=== PATIENT | male | born 1945 | race Caucasian/White ===

== ENCOUNTER 2017-05-28 12:10 | Emergency (ER) | payer OTHER ==
[~2017-05-28] VITALS: Ht 170.2 cm; Wt 73.7 kg
[~2017-05-28 12:10] MED LIST: BACTDS PO; CEPH-443 PO
[2017-05-28 12:14] VITALS: Ht 170.2 cm; Wt 73.7 kg
[2017-05-28] MEDS ORDERED: IBUPROFEN 600 MG TAB PO ONE (14:00)
--- NOTE | 2017-05-28 14:21 | RADRPT ---
PROCEDURE: XR Chest. CLINICAL INDICATION: Cough. TECHNIQUE: Single frontal view of the chest was obtained. COMPARISON: None FINDINGS: The soft tissues are normal. There are degenerative osteophytes in the thoracic and upper lumbar sp ine. The heart is upper limits of normal for size. The cardiomediastinal silhouette and hilar struc tures are normal. The pulmonary vasculature is normal. There are vascular calcifications in the ect atic left-sided aorta. The lungs are clear. The costophrenic angles are normal. IMPRESSION: 1. 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 2. Borderline cardiomegaly with no evidence of active cardiopulmonary disease. 3. Spondylosis of the thoracic spine. RPTAT:AAJJ Physician Lisbeth Date Time Electronically viewed and signed by Physician Lisbeth on 05/28/2017 14:20 /
[2017-05-28] MEDS ORDERED: HYDR-905 PO (16:16)
[2017-05-28] MEDS ORDERED: NAPR-685 PO (16:16)
[2017-05-28] MEDS ORDERED: LEVO500T10 PO (16:16)
[2017-05-28] MEDS ORDERED: ONDA4TAB11 PO (16:16)
--- NOTE | 2017-05-28 16:53 | ERD ---
ER Documentation Chief Complaint Chief Complaint COUGH X 1 WEEK HPI This 71-year-old male presents for a dry cough times a week. Is also had mild joint pain. Denies chest pain. Denies shortness of breath. Says he is active and otherwise healthy. Has occasional nausea with no vomiting. ROS All systems reviewed and are negative except as per history of present illness. Medications Home Meds Active Scripts Hydrocodone/Acetaminophen ([place] 7.5-325 Tablet) 1 Each Tablet, 1 EACH PO Q6, # 10 TAB Prov:JESUS RUSH DO 05/28/17 Naproxen* (Naproxen*) 375 Mg Tablet, 375 MG PO BID Y for PAIN, #14 TAB Prov:JESUS RUSH DO 05/28/17 Levofloxacin* (Levofloxacin*) 500 Mg Tablet, 500 MG PO DAILY for 7 Days, TAB Prov:VICTOR MANUELJESUS DO 05/28/17 Ondansetron (Zofran Odt) 4 Mg Tab.rapdis, 4 MG PO Q6, #10 Prov:JESUS RUSH DO 05/28/17 Sulfamethoxazole-Trimethoprim* (Bactrim* DS) 800-160 Mg Tab, 1 TAB PO BID for 10 Days, TAB Prov:CHARLA HUTCHISON HARDNESS TESTER 10/04/15 Cephalexin* (Keflex*) 500 Mg Capsule, 500 MG PO QID for 10 Days, CAP Prov:CHARLA HUTCHISON HARDNESS TESTER 10/04/15 Allergies Allergies: Coded Allergies: No Known Allergy (Unverified , 10/04/15) PMhx/Soc History of Surgery: No Anesthesia Reaction: No Hx Neurological Disorder: No Hx Respiratory Disorders: No Hx Cardiac Disorders: Yes (HTN, HYPERLIPIDEMIA) Hx Psychiatric Problems: No Hx Miscellaneous Medical Probl: Yes (DM TYPE II) Hx Alcohol Use: No Hx Substance Use: No Hx Tobacco Use: No Physical Exam Vitals Vital Signs Date Time Temp Pulse Resp B/P Pulse Ox O2 Delivery O2 Flow Rate FiO2 05/28/17 12:14 98.0 118 18 157/85 97 Physical Exam Const: [] No acute distress Head: Atraumatic Eyes: Normal Conjunctiva ENT: Normal External Ears, Nose and Mouth. Neck: Full range of motion..~No JVD Resp: Clear to auscultation bilaterally Cardio: Regular tachycardia, no murmurs Abd: Soft, non tender, non distended. Normal bowel sounds Skin: No petechiae or rashes Ext: No cyanosis, or edema Neur: Awake and alert oriented 3, no focal deficits Psych: Normal Mood and Affect Results 24 hrs Current Medications Medications (Trade) Dose Ordered Sig/Jeffrey Route PRN Reason Start Time Stop Time Status Last Admin Dose Admin Ibuprofen (Motrin) 600 mg ONCE ONCE PO 05/28/17 14:00 05/28/17 14:01 DC 05/28/17 13:58 Procedures/MDM Well-appearing 71-year-old male with acute bronchitis. Patient did have tachycardia stated he did not feel that bad. EKG was done which was negative for ischemia. Chest x-ray was done which was negative for any acute process. He was given ibuprofen and said he felt better after that. Flu test is negative. I believe he likely has an upper respiratory infection and is at risk for bacterial infection. We will discharge him with Levaquin as well as Zofran, ibuprofen and a few [place]. I told him he should come back to the emergency room for a full workup if he has any other concerning symptoms or any fevers. Is aware that his heart rate is still fast and still feels comfortable leaving the ER. EKG interpretation: Sinus tachycardia of 113, normal axis, no ST or T-wave changes concerning for acute ischemia, normal intervals. Normal EKG except for tachycardia Chest x-ray interpretation: I see no acute process. I see no infiltrates, no hemorrhage, no palmar edema, pneumothorax, no fractures Departure Diagnosis: Primary Impression: Acute bronchitis Condition: Fair Patient Instructions: Bronchitis, Antiobiotic Treatment (Adult) Additional Instructions: Call your primary care doctor TOMORROW for an appointment during the next 1-2 days.See the doctor sooner or return here if your condition worsens before your appointment time. JESUS RUSH DO May 28, 2017 16:53
[2017-05-28 17:00] VITALS: BP 148/72; PULSE 76; RESP 18; TEMP 98.1
== END 2017-05-28 17:00 | disposition home or self-care (01) ==
LOC: FTE 12:10
DX: J20.9 Acute bronchitis, unspecified (principal); I10 Essential (primary) hypertension; E11.9 Type 2 diabetes mellitus without complications
CPT/HCPCS: 71010; 87400; 93005

== ENCOUNTER 2017-06-01 08:11 | Emergency (ER) | payer OTHER ==
[~2017-06-01] VITALS: Ht 172.7 cm; Wt 72.2 kg
[~2017-06-01 08:11] MED LIST changes: +HYDR-905 PO; +LEVO500T10 PO; +NAPR-685 PO; +ONDA4TAB11 PO
[2017-06-01 08:15] VITALS: Ht 172.7 cm; Wt 72.2 kg
[2017-06-01] MEDS ORDERED: SODIUM CHLORIDE 0.9% 1L BAG IV* STA (08:33)
[2017-06-01 09:18] LABS: BASOPHIL # 0.1 10^3/ul (0.0-0.1); BASOPHILS % 0.6 % (0.0-2.0); EOSINOPHILS # 0.1 10^3/ul (0.0-0.5); EOSINOPHILS % 1.7 % (0.0-7.0); HEMATOCRIT 44.7 % (42.0-52.0); HEMOGLOBIN 15.1 g/dl (14.0-18.0); LYMPHOCYTES # 2.1 10^3/ul (0.8-2.9); LYMPHOCYTES % 25.7 % (15.0-51.0); MEAN CORPUSCULAR HEMOGLOBIN 29.4 pg (29.0-33.0); MEAN CORPUSCULAR HGB CONC 33.8 g/dl (32.0-37.0); MEAN CORPUSCULAR VOLUME 87.1 fl (82.0-101.0); MEAN PLATELET VOLUME 9.4 fl (7.4-10.4); MONOCYTE # 0.7 10^3/ul (0.3-0.9); MONOCYTES % 8.2 % (0.0-11.0); NEUTROPHIL # 5.3 10^3/ul (1.6-7.5); NEUTROPHILS % 63.6 % (39.0-77.0); PLATELET COUNT 336 10^3/UL (140-415); RED BLOOD COUNT 5.13 10^6/ul (4.70-6.10); RED CELL DISTRIBUTION WIDTH 12.2 % (11.5-14.5); WHITE BLOOD COUNT 8.3 10^3/ul (4.8-10.8)
[2017-06-01 09:30] LABS: ADD UMIC NO; UR ASCORBIC ACID NEGATIVE (NEGATIVE); UR BILIRUBIN (Dip) NEGATIVE (NEGATIVE); UR BLOOD (Dip) NEGATIVE (NEGATIVE); UR CLARITY CLEAR (CLEAR); UR COLOR YELLOW (YELLOW); UR GLUCOSE (Dip) NEGATIVE (NEGATIVE); UR KETONES (Dip) TRACE mg/dL (NEGATIVE); UR LEUKOCYTE ESTERASE (Dip) NEGATIVE Leu/ul (NEGATIVE); UR NITRITE (Dip) NEGATIVE (NEGATIVE); UR SPECIFIC GRAVITY (Dip) 1.018 (1.003-1.030); UR TOTAL PROTEIN (Dip) NEGATIVE (NEGATIVE); UR UROBILINOGEN (Dip) NEGATIVE (NEGATIVE)
[2017-06-01 09:34] LABS: ALANINE AMINOTRANSFERASE 38 IU/L (13-69); ALBUMIN 4.8 g/dl (3.3-4.9); ALBUMIN/GLOBULIN RATIO 1.33; ALKALINE PHOSPHATASE 88 IU/L (42-121); ANION GAP 18 (8-16); ASPARTATE AMINO TRANSFERASE 28 IU/L (15-46); BILIRUBIN,INDIRECT 0.8 mg/dl (0-1.1); BILIRUBIN,TOTAL 0.8 mg/dl (0.2-1.3); BLOOD UREA NITROGEN 17 mg/dl (7-20); CALCIUM 9.7 mg/dl (8.4-10.2); CARBON DIOXIDE 28 mmol/L (21-31); CHLORIDE 96 mmol/L (97-110); CREATININE 1.07 mg/dl (0.61-1.24); GLUCOSE 145 mg/dl (70-220); SODIUM 138 mmol/L (135-144); TOTAL PROTEIN 8.4 g/dl (6.1-8.1)
[2017-06-01 09:40] LABS: INR 0.95; PROTIME 12.8 Sec (11.9-14.9)
[2017-06-01 09:41] LABS: PARTIAL THROMBOPLASTIN TIME 29.6 Sec (25.0-35.0)
[2017-06-01] MEDS ORDERED: ONDANSETRON 4 MG INJ IV STA (09:44)
[2017-06-01 09:47] LABS: TROPONIN-I < 0.012 ng/ml (0.00-0.12)
--- NOTE | 2017-06-01 09:55 | RADRPT ---
PROCEDURE: XR Chest. CLINICAL INDICATION: Vomiting, fever TECHNIQUE: Single frontal view of the chest was obtained. COMPARISON: CHEST 05/28/2017; KIMBER[facility] CHEST 10/02/2014 FINDINGS: The heart is within normal limits. The thoracic aorta is calcified. There is no focal infiltrate. There is a tiny calcified granuloma in the right lower lobe. There is no pleural effusion or pneumothorax. RPTAT: AA IMPRESSION: No acute disease. Calcified aorta consistent with atherosclerotic disease. .Mookie Ho MD, Date Time Electronically viewed and signed by .Mookie Ho MD, on 06/01/2017 09:54 .S/
[2017-06-01] MEDS ORDERED: FAMOTIDINE 20 MG INJ IV ONE (10:00)
[2017-06-01] MEDS ORDERED: SIMV40TA2 PO (10:16)
[2017-06-01] MEDS ORDERED: METF500T4 PO (10:16)
[2017-06-01] MEDS ORDERED: LEVO50TA74 PO (10:17)
[2017-06-01] MEDS ORDERED: CAPT25TA3 PO (10:17)
--- NOTE | 2017-06-01 10:43 | RADRPT ---
PROCEDURE: CT Abdomen and Pelvis without contrast. CLINICAL INDICATION: Abdominal pain TECHNIQUE: CT scan of the abdomen and pelvis was performed on a multidetector high-resolution CT s canner without intravenous contrast. Coronal and sagittal reformatted images were obtained from the axial source images. Images were reviewed on a high-resolution PACS workstation. The total exam CTD I equals 7mGy and the total exam DLP equals 466mGy-cm. One or more of the following dose reduction t echniques were used: Automated exposure control, Adjustment of the mA and/or kV according to patient size, and/or use of iterative reconstruction technique. DICOM images are available. COMPARISON: None. FINDINGS: Evaluation of the solid organs is limited given the lack of intravenous contrast administration. Coronary arterial and aortic atherosclerosis. The liver, pancreas, spleen, and adrenals are grossly unremarkable. No focal pericholecystic inflammatory changes. No hydronephrosis. No renal or ureteral stone. No bowel obstruction. Normal-caliber appendix. No significant retroperitoneal lymphadenopathy, ascites or evidence of pneumoperitoneum. Aortoiliac atherosclerosis. Fat containing right inguinal hernia. Prominent prostate gland. IMPRESSION: No renal or ureteral stone. No evidence of bowel obstruction or appendicitis. Fat containing right inguinal hernia. Coronary arterial and aortic atherosclerosis. RPTAT: AA .Allan Paulson MD, MD Date Time Electronically viewed and signed by .Allan Paulson MD, on 06/01/2017 10:43 .T/
--- NOTE | 2017-06-01 10:52 | ERD ---
ER Documentation Chief Complaint Chief Complaint FEVER & VOMITED 6-TIMES LAST NIGHT HPI This 71-year-old male presents to the emergency room for evaluation of the nausea, and vomiting. The patient states that he vomited 6 times. He states that his vomit has not had any blood in it. He has had 2 episodes of nonbloody diarrhea. States that he thinks he had a fever last night. The patient denies any chest pain, palpitations, shortness of breath, or diaphoresis. He denies any aggravating or relieving factors for his symptoms and came to the emergency room for further evaluation ROS All systems reviewed and are negative except as per history of present illness. Medications Home Meds Reported Medications Levothyroxine Sodium* (Levothyroxine Sodium*) 50 Mcg Tablet, 50 MCG PO BEFORE BREAKFAST, #30 TAB 06/01/17 Captopril* (Captopril*) 25 Mg Tablet, 25 MG PO BID, #60 TAB 06/01/17 Metformin* (Glucophage*) 500 Mg Tab, 500 MG PO BID WITH MEALS, #60 TAB 06/01/17 Simvastatin* (Zocor*) 40 Mg Tablet, 40 MG PO QHS, #30 TAB 06/01/17 Discontinued Scripts Hydrocodone/Acetaminophen ([place] 7.5-325 Tablet) 1 Each Tablet, 1 EACH PO Q6, # 10 TAB Prov:VICTOR MANUELJESUS DO 05/28/17 Naproxen* (Naproxen*) 375 Mg Tablet, 375 MG PO BID Y for PAIN, #14 TAB Prov:VICTOR MANUELJESUS DO 05/28/17 Levofloxacin* (Levofloxacin*) 500 Mg Tablet, 500 MG PO DAILY for 7 Days, TAB Prov:VICTOR MANUELJESUS DO 05/28/17 Ondansetron (Zofran Odt) 4 Mg Tab.rapdis, 4 MG PO Q6, #10 Prov:VICTOR MANUELJESUS DO 05/28/17 Sulfamethoxazole-Trimethoprim* (Bactrim* DS) 800-160 Mg Tab, 1 TAB PO BID for 10 Days, TAB Prov:CHARLA HUTCHISON NP 10/04/15 Cephalexin* (Keflex*) 500 Mg Capsule, 500 MG PO QID for 10 Days, CAP Prov:CHARLA HUTCHISON NP 10/04/15 Allergies Allergies: Coded Allergies: No Known Allergy (Unverified , 10/04/15) PMhx/Soc History of Surgery: No Anesthesia Reaction: No Hx Neurological Disorder: No Hx Respiratory Disorders: No Hx Cardiac Disorders: Yes (HTN, HYPERLIPIDEMIA) Hx Psychiatric Problems: No Hx Miscellaneous Medical Probl: Yes (DM TYPE II, thyroid) Hx Alcohol Use: No Hx Substance Use: No Hx Tobacco Use: No Smoking Status: Former smoker Physical Exam Vitals Vital Signs Date Time Temp Pulse Resp B/P Pulse Ox O2 Delivery O2 Flow Rate FiO2 06/01/17 08:15 96.5 124 16 160/49 100 Physical Exam INITIAL VITAL SIGNS: Reviewed by me GENERAL: The patient is well developed and appropriate for usual state of health in no apparent distress HEENT: Dry mucous membranes, pupils equal, round, and reactive to light. EOMI. There is no scleral icterus. NECK: C-spine is soft and supple, there is no meningismus. There is no cervical lymphadenopathy. LUNGS: Clear to auscultation bilaterally. There are no rales, wheezes or rhonchi. HEART: Tachycardic, no murmurs, clicks, rubs or gallops. ABDOMEN: Soft, non-tender, non-distended. There are bowel sounds in all four quadrants. No rebound or guarding. EXTREMITIES: There is no peripheral cyanosis or edema. No focal swelling or erythema. NEUROLOGICAL: The patient moves all four extremities with 5/5 strength. Cranial nerves II - XII are intact. Normal gait. Alert and oriented SKIN: There is no apparent rash or petechiae. HEME/LYMPHATIC: There is no evidence of excessive bruising or lymphedema. PSYCHIATRIC: The patient does not appear anxious or depressed. Result Diagram: 06/01/17 0847 06/01/17 0847 Results 24 hrs Laboratory Tests Test 06/01/17 08:43 06/01/17 08:47 06/01/17 09:03 06/01/17 09:06 Bedside Glucose 133mg/dL White Blood Count 8.310^3/ul Red Blood Count 5.1310^6/ul Hemoglobin 15.1g/dl Hematocrit 44.7% Mean Corpuscular Volume 87.1fl Mean Corpuscular Hemoglobin 29.4pg Mean Corpuscular Hemoglobin Concent 33.8g/dl Red Cell Distribution Width 12.2% Platelet Count 70694^3/UL Mean Platelet Volume 9.4fl Neutrophils % 63.6% Lymphocytes % 25.7% Monocytes % 8.2% Eosinophils % 1.7% Basophils % 0.6% Nucleated Red Blood Cells % 0.0/100WBC Neutrophils # 5.310^3/ul Lymphocytes # 2.110^3/ul Monocytes # 0.710^3/ul Eosinophils # 0.110^3/ul Basophils # 0.110^3/ul Nucleated Red Blood Cells # 0.010^3/ul Prothrombin Time 12.8Sec Prothrombin Time Ratio 1.0 INR International Normalized Ratio 0.95 Activated Partial Thromboplast Time 29.6Sec Sodium Level 138mmol/L Potassium Level 4.0mmol/L Chloride Level 96mmol/L Carbon Dioxide Level 28mmol/L Anion Gap 18 Blood Urea Nitrogen 17mg/dl Creatinine 1.07mg/dl Glucose Level 145mg/dl Calcium Level 9.7mg/dl Total Bilirubin 0.8mg/dl Direct Bilirubin 0.00mg/dl Indirect Bilirubin 0.8mg/dl Aspartate Amino Transf (AST/SGOT) 28IU/L Alanine Aminotransferase (ALT/SGPT) 38IU/L Alkaline Phosphatase 88IU/L Troponin I < 0.012ng/ml Total Protein 8.4g/dl Albumin 4.8g/dl Globulin 3.60g/dl Albumin/Globulin Ratio 1.33 Urine Color YELLOW Urine Clarity CLEAR Urine pH 5.0 Urine Specific [place] 1.018 Urine Ketones TRACEmg/dL Urine Nitrite NEGATIVEmg/dL Urine Bilirubin NEGATIVEmg/dL Urine Urobilinogen NEGATIVEmg/dL Urine Leukocyte Esterase NEGATIVELeu/ul Urine Hemoglobin NEGATIVEmg/dL Urine Glucose NEGATIVEmg/dL Urine Total Protein NEGATIVEmg/dl Lactic Acid Level 1.6mmol/L Current Medications Medications (Trade) Dose Ordered Sig/Jeffrey Route PRN Reason Start Time Stop Time Status Last Admin Dose Admin Sodium Chloride (NS) 2,240 ml BOLUS OVER 2 HOURS STAT IV* 06/01/17 08:33 06/01/17 08:34 DC 06/01/17 09:13 Ondansetron HCl (Zofran Inj) 4 mg ONCE STAT IV 06/01/17 09:44 06/01/17 09:45 DC 06/01/17 10:29 Famotidine (Pepcid Iv) 20 mg ONCE ONCE IV 06/01/17 10:00 06/01/17 10:01 DC 06/01/17 10:29 Procedures/MDM EKG: Rate/Rhythm: Sinus tachycardia QRS, ST, T-waves: [No changes consistent w/ acute ischemia] Impression: [No evidence of ischemia or arrhythmia] Chest X-ray 1V Interpreted by me: Soft Tissue: No acute abnormalities Bones: No acute abnormalities Mediastinum/Cardiac Silhouette/Lungs: [No acute abnormalities] CT abd/pelvis: No renal or ureteral stone. No evidence of bowel obstruction or appendicitis. Fat containing right inguinal hernia. Coronary arterial and aortic atherosclerosis. This 71-year-old male presents to the emergency room for evaluation of nausea and vomiting. When I evaluated this patient he was tachycardic and did have dry mucous membranes. A septic workup was started on this patient and lab work is within normal limits at this time. This patient had a chest x-ray which was clear, EKG was nonischemic and CT of the abdomen and pelvis was obtained which does not show any acute pathology. He does not have a leukocytosis, lactic acid is normal. He was given greater than 30 cc/kg of IV normal saline and was also given Zofran and Pepcid. After being in the emergency room for approximately 2 hours I reevaluated this patient. The patient is sleeping comfortably and he is in no acute distress. His heart rate is now 99 bpm, and his oxygen saturations 100% on room air. This patient is likely dehydrated from vomiting. At this time I do not see a reason for admission as this patient has improved clinically and is no signs of sepsis. The patient's troponin is negative as well and he will be discharged at this time with a prescription for Zofran Pepcid with instructions to return to the ER as if his symptoms worsen. But the patient and the patient's are okay with the plan of care Departure Diagnosis: Primary Impression: Acute vomiting Additional Impressions: Mild dehydration Ketonuria Condition: Stable NANETTE DUNCAN DO Jun 01, 2017 10:52
[2017-06-01] MEDS ORDERED: ONDA4TAB8 PO (10:53)
[2017-06-01 11:15] VITALS: BP 130/81; PULSE 105; RESP 17
== END 2017-06-01 11:16 | disposition home or self-care (01) ==
LOC: E/R 08:11
DX: E86.0 Dehydration (principal); R11.10 Vomiting, unspecified; R82.4 Acetonuria; I10 Essential (primary) hypertension; E11.9 Type 2 diabetes mellitus without complications; R10.9 Unspecified abdominal pain; Z79.84 Long term (current) use of oral hypoglycemic drugs; Z87.891 Personal history of nicotine dependence
CPT/HCPCS: 36415; 71010; 74176; 80053; 81003; 82962; 83605; 84484; 85025; 85610; 85730; 87040; 87086; 93005; 96374; 96375; 99285; J2405; J7030

== ENCOUNTER 2018-03-22 07:44 | Emergency (ER) | END 2018-03-22 11:26 | disposition home or self-care (01) ==

== ENCOUNTER 2018-09-26 06:39 | Emergency (ER) | payer OTHER, MEDICAID ==
[~2018-09-26] VITALS: Wt 79.2 kg
[~2018-09-26 06:39] MED LIST changes: -BACTDS PO; +CAPT25TA3 PO; -CEPH-443 PO; -HYDR-905 PO; +IBUP800T48 PO; -LEVO500T10 PO; +LEVO50TA7 PO; +METF-849 PO; -NAPR-685 PO; -ONDA4TAB11 PO; +ONDA4TAB8 PO; +SIMV40TA2 PO
[2018-09-26 06:42] VITALS: BP 160/83; PULSE 98; RESP 18
[2018-09-26] MEDS ORDERED: PROM6.2515 PO (07:09)
[2018-09-26] MEDS ORDERED: BENZ-6 PO (07:09)
[2018-09-26] MEDS ORDERED: PSEU-79 PO (07:09)
[2018-09-26] MEDS ORDERED: AZIT250T PO (07:09)
--- NOTE | 2018-09-26 08:43 | ERD ---
ER Documentation Chief Complaint Chief Complaint cough,flu x 5 days, pain when coughing HPI 72-year-old male presenting with a dry cough and runny nose. He has not taken medications for symptoms. He denies any chest pain or shortness of breath. He denies sick contacts. Medical history is hypothyroidism hypercholesterolemia diabetes and hypertension. NKDA. Surgical history denies. Social history denies ROS All systems reviewed and are negative except as per history of present illness. Medications Home Meds Active Scripts Pseudoephedrine Hcl* (Suphedrin*) 30 Mg Tablet, 30 MG PO Q6 PRN for CONGESTION, #30 TAB Prov:LESLIE PINEDA PA-C 09/26/18 Azithromycin* (Zithromax*) 250 Mg Tablet, 250 MG PO .ManuelPACK DIRECTED, #6 TAB TAKE 500 MG (2 TABS) THE FIRST DAY THEN 250 MG (1 TAB) DAYS 2-5 Prov:LESLIE PINEDA PA-C 09/26/18 Promethazine Hcl* (Promethazine Hcl* Syrup) 6.25 Mg/5 Ml Syrup, 6.25 MG PO Q6H PRN for COUGH, #100 ML Prov:LESLIE PINEDA PA-C 09/26/18 Benzonatate* (Tessalon Perle*) 100 Mg Capsule, 100 MG PO Q8H PRN for COUGH, #30 CAP Prov:LESLIE PINEDA PA-C 09/26/18 Ibuprofen* (Motrin*) 800 Mg Tab, 800 MG PO Q6H PRN for PAIN AND OR ELEVATED TEMP, #30 TAB Prov:SAIMA CAVANAUGH MD 03/22/18 Ondansetron Hcl* (Zofran*) 4 Mg Tablet, 4 MG PO Q8H PRN for NAUSEA AND/OR VOMITING, #12 TAB Prov:NANETTE DUNCAN DO 06/01/17 Reported Medications Levothyroxine Sodium* (Levothyroxine Sodium*) 50 Mcg Tablet, 50 MCG PO BEFORE BREAKFAST, #30 TAB 06/01/17 Captopril* (Captopril*) 25 Mg Tablet, 25 MG PO BID, #60 TAB 06/01/17 Metformin* (Glucophage*) 500 Mg Tab, 500 MG PO BID WITH MEALS, #60 TAB 06/01/17 Simvastatin* (Zocor*) 40 Mg Tablet, 40 MG PO QHS, #30 TAB 06/01/17 Allergies Allergies: Coded Allergies: No Known Allergy (Unverified , 10/04/15) PMhx/Soc History of Surgery: Yes (Hernia repair) Anesthesia Reaction: No Hx Neurological Disorder: No Hx Respiratory Disorders: No Hx Cardiac Disorders: Yes (HTN, HYPERLIPIDEMIA,) Hx Psychiatric Problems: No Hx Miscellaneous Medical Probl: Yes (DM TYPE II, thyroid) Hx Alcohol Use: No Hx Substance Use: No Hx Tobacco Use: No Smoking Status: Never smoker FmHx Family History: No diabetes, No coronary disease, No other Physical Exam Vitals Vital Signs Date Temp Pulse Resp B/P (MAP) Pulse Ox O2 O2 Flow FiO2 Time Delivery Rate 09/26/18 98.1 98 18 160/83 99 06:42 (108) Physical Exam GENERAL: The patient is well-appearing, well-nourished, in no acute distress HEENT: Atraumatic. Conjunctivae are pink. Pupils equal, round, and reactive to light. There is no scleral icterus. Tympanic membranes clear bilaterally. Oropharynx clear. NECK: C-spine is soft and supple. There is no meningismus. There is no cervical lymphadenopathy. CHEST: Clear to auscultation bilaterally. There are no rales, wheezes or rhonchi. HEART: Regular rate and rhythm. No murmurs, clicks, rubs or gallops. Procedures/MDM DM: 72-year-old male presenting with URI symptoms. Patient will be discharged with supportive medications. I have low suspicion for respiratory distress and hypoxia. Patient is discharged with antibiotics but recommended to wait 3-4 more days prior to taking. Patient was only told to take if symptoms persist. Patient is discharged with strict ER precautions and told to follow-up with primary care. All questions answered at discharge Departure Diagnosis: Primary Impression: Cough Condition: Stable Patient Instructions: Cough, Chronic, Uncertain Cause, (Adult) Referrals: COMMUNITY CLINICS YOU HAVE RECEIVED A MEDICAL SCREENING EXAM AND THE RESULTS INDICATE THAT YOU DO NOT HAVE A CONDITION THAT REQUIRES URGENT TREATMENT IN THE EMERGENCY DEPARTMENT. FURTHER EVALUATION AND TREATMENT OF YOUR CONDITION CAN WAIT UNTIL YOU ARE SEEN IN YOUR DOCTORS OFFICE WITHIN THE NEXT 1-2 DAYS. IT IS YOUR RESPONSIBILITY TO MAKE AN APPOINTMENT FOR FOLOW-UP CARE. IF YOU HAVE A PRIMARY DOCTOR --you should call your primary doctor and schedule an appointment IF YOU DO NOT HAVE A PRIMARY DOCTOR YOU CAN CALL OUR PHYSICIAN REFERRAL HOTLINE AT IF YOU CAN NOT AFFORD TO SEE A PHYSICIAN YOU CAN CHOSE FROM THE FOLLOWING [facility] [address] [facility] [address] [facility] [address] [facility] [address] [facility] [address] [facility]. [facility]. [address] Additional Instructions: FOLLOW UP WITH YOUR PRIMARY CARE PHYSICIAN TOMORROW.Return to this facility if you are not improving as expected. LESLIE PINEDA PA-C Sep 26, 2018 08:43
== END 2018-09-26 07:22 | disposition home or self-care (01) ==
LOC: FTE 06:39
DX: R05 Cough (principal); I10 Essential (primary) hypertension; E11.9 Type 2 diabetes mellitus without complications; E03.9 Hypothyroidism, unspecified; Z79.84 Long term (current) use of oral hypoglycemic drugs
CPT/HCPCS: 99283

== ENCOUNTER 2019-04-02 06:41 | Emergency (ER) | payer OTHER, MEDICAID ==
[~2019-04-02] VITALS: Ht 162.6 cm; Wt 78.0 kg
[~2019-04-02 06:41] MED LIST changes: +AZIT250T PO; +BENZ-6 PO; +PROM6.2515 PO; +PSEU-79 PO
[2019-04-02 06:50] VITALS: BP 133/73; PULSE 120; RESP 18; Ht 162.6 cm; Wt 78.0 kg
== END 2019-04-02 08:42 | disposition home or self-care (01) ==
LOC: FTE 06:41
DX: N50.89 Other specified disorders of the male genital organs (principal); I10 Essential (primary) hypertension; E11.9 Type 2 diabetes mellitus without complications; Z79.84 Long term (current) use of oral hypoglycemic drugs
CPT/HCPCS: 76870; 81003; 93005